=== PATIENT | male | born 1930 | race Caucasian/White ===

== ENCOUNTER → 2017-01-04 | Outpatient (CLI) | payer OTHER | END | disposition home or self-care (01) | LOC: PCVCCLINIC 15:00 | PROVIDERS: ATTEND Internal Medicine Cardiovascular Disease | DX: I48.0 Paroxysmal atrial fibrillation (principal); I25.10 Atherosclerotic heart disease of native coronary artery without angina pectoris; E78.00 Pure hypercholesterolemia, unspecified; I44.2 Atrioventricular block, complete; I65.23 Occlusion and stenosis of bilateral carotid arteries; I49.5 Sick sinus syndrome; I10 Essential (primary) hypertension; E13.9 Other specified diabetes mellitus without complications; Z79.899 Other long term (current) drug therapy | CPT/HCPCS: 80061; 93005; G0463 ==

== ENCOUNTER → 2017-07-13 | Outpatient (CLI) | payer OTHER ==
--- NOTE | 2017-07-16 10:44 | PCVCIMAG ---
APPROVED REPORT Study performed: 07/13/2017 08:52:42 EXAM: Comprehensive 2D, Doppler, and color-flow Echocardiogram Patient Location: Echo lab Room #: 2Status: routine BSA: 2.14 HR: 60 bpm Rhythm: Pacemaker Other Information Study Quality: Technically DifficultGood Risk Factors: Cardiac Risk Factors: DM, Hyperlipidemia Indications Diabetes Dyspnea Pacemaker CAD Hx sick sinus syndrome 2D Dimensions LVEF(%): 64.63 (>50%) IVSd: 8.02 (7-11mm)LVOT Diam: 21.53 (18-24mm) LVDd: 40.32 mm PWd: 7.24 (7-11mm)Ascending Ao: 32.33 (22-36mm) LVDs: 26.27 (25-40mm) Left Atrium: 23.38 (27-40mm) Aortic Root: 29.98 mm LV Single Plane 4CH: 53.61 % LV Single Plane 2CH: 62.65 %Reno's LVEF: 58.13 % Biplane EF: 60.6 % Volumes Left Atrial Volume (Systole) Single Plane 4CH: 69.04 mLSingle Plane 2CH: 64.44 mL Biplane LA Volume: 69.00 mLLA ESV Index: 32.00 mL/m2 Aortic Valve AoV Peak Kimo.: 1.36 m/s AO Peak Gr.: 7.40 mmHgLVOT Max P.33 mmHg LVOT Max V: 0.91 m/s CESILIA Vmax: 2.44 cm2 AI Vmax: 3.97 m/s AI Nye: 2.44 m/s2 AI PHT: 471.50 ms Mitral Valve E/A Ratio: 0.6 MV Decel. Time: 235.48 ms MV E Max Kimo.: 0.49 m/s MV A Kimo.: 0.89 m/s IVRT: 103.81 ms TDI E/Medial E': 9.80 Medial E' Kimo.: 0.05 m/s Pulmonary Valve PV Peak Kimo.: 1.18 m/sPV Peak Gr.: 5.57 mmHg Pulmonary Vein P Vein S: 0.61 m/sP Vein A: 0.34 m/s P Vein D: 0.25 m/sP Vein A Dur.: 100.3 msec P Vein S/D Ratio: 2.44 Tricuspid Valve TR Peak Kimo.: 2.05 m/s TR Peak Gr.: 16.84 mmHg TV Vmax: 0.48 m/sPA Pressure: 24.00 mmHg Left Ventricle The left ventricle is normal size. There is normal LV segmental wall motion. There is normal left ventricular wall thickness. Left ventricular systolic function is normal. The left ventricular ejection fraction is within the normal range. LVEF is 50% range ant apical hypo Grade I - abnormal relaxation pattern. Right Ventricle The right ventricle is normal size. The right ventricular systolic function is normal. Atria The left atrium size is normal. Pacemaker lead is present in the right atrium. Aortic Valve Aortic valve is trileaflet. Aortic valve leaflets are mildly sclerotic. Mild aortic regurgitation. There is no aortic valvular stenosis. Mitral Valve The mitral valve is normal in structure. There is no mitral valve regurgitation noted. No evidence of mitral valve stenosis. Tricuspid Valve The tricuspid valve is normal in structure. Trace tricuspid regurgitation. Pulmonic Valve The pulmonary valve is normal in structure. There is no pulmonic valvular regurgitation. Great Vessels The aortic root is normal in size. The ascending aorta is normal in size. IVC is normal in size and collapses with >50% inspiration Pericardium There is no pericardial effusion. There is no pleural effusion. <Conclusion> The left ventricle is normal size. LVEF is 50% range Grade I - abnormal relaxation pattern. Pacemaker lead is present in the right atrium. Mild aortic regurgitation. There is no mitral valve regurgitation noted. There is no pericardial effusion. LVEF is 50% range ant apical hypo
== END | disposition home or self-care (01) ==
LOC: PCVCIMAG 08:44
PROVIDERS: ATTEND Internal Medicine Cardiovascular Disease
DX: I35.1 Nonrheumatic aortic (valve) insufficiency (principal); I10 Essential (primary) hypertension; I25.10 Atherosclerotic heart disease of native coronary artery without angina pectoris; E11.9 Type 2 diabetes mellitus without complications; I48.0 Paroxysmal atrial fibrillation; Z95.0 Presence of cardiac pacemaker; R06.00 Dyspnea, unspecified
CPT/HCPCS: 93005; 93306

== ENCOUNTER → 2017-10-10 | Outpatient (CLI) | payer OTHER | END | disposition home or self-care (01) | LOC: PCVCCLINIC 10:20 | DX: I25.10 Atherosclerotic heart disease of native coronary artery without angina pectoris (principal); I49.5 Sick sinus syndrome; I48.91 Unspecified atrial fibrillation; E78.00 Pure hypercholesterolemia, unspecified; I10 Essential (primary) hypertension; I77.9 Disorder of arteries and arterioles, unspecified; Z95.0 Presence of cardiac pacemaker; Z79.899 Other long term (current) drug therapy | CPT/HCPCS: 80061; 93280; G0463 ==

== ENCOUNTER → 2018-06-26 | Outpatient (CLI) | payer OTHER | END | disposition home or self-care (01) | LOC: PCVCCLINIC 14:29 | PROVIDERS: ATTEND Internal Medicine Cardiovascular Disease | DX: I10 Essential (primary) hypertension (principal); I48.0 Paroxysmal atrial fibrillation; I42.8 Other cardiomyopathies; I49.5 Sick sinus syndrome; E11.9 Type 2 diabetes mellitus without complications; I44.2 Atrioventricular block, complete; I25.10 Atherosclerotic heart disease of native coronary artery without angina pectoris; E78.5 Hyperlipidemia, unspecified; Z95.0 Presence of cardiac pacemaker | CPT/HCPCS: 93280; G0463 ==

== ENCOUNTER → 2019-03-26 | Outpatient (CLI) | payer OTHER | END | disposition home or self-care (01) | LOC: PCVCCLINIC 13:00 | PROVIDERS: ATTEND Internal Medicine Cardiovascular Disease | DX: I42.9 Cardiomyopathy, unspecified (principal); I48.0 Paroxysmal atrial fibrillation; I10 Essential (primary) hypertension; E78.00 Pure hypercholesterolemia, unspecified; I49.5 Sick sinus syndrome; I44.2 Atrioventricular block, complete; E11.9 Type 2 diabetes mellitus without complications; Z95.0 Presence of cardiac pacemaker | CPT/HCPCS: 36415; 80061; 93280; G0463 ==

== ENCOUNTER → 2019-07-02 | Outpatient (CLI) | payer OTHER ==
--- NOTE | 2019-07-02 14:36 | PCVCIMAG ---
APPROVED REPORT Study performed: 07/02/2019 13:35:42 EXAM: Comprehensive 2D, Doppler, and color-flow Echocardiogram Patient Location: Echo lab Status: routine BSA: 1.99 HR: 60 bpm Rhythm: NSR Other Information Study Quality: Technically Difficult Risk Factors: Cardiac Risk Factors: HTN Indications Pacemaker Cardiomyopathy PAF 2D Dimensions IVSd: 12.89 (7-11mm)LVOT Diam: 23.72 (18-24mm) LVDd: 36.80 mm PWd: 11.61 (7-11mm)Ascending Ao: 32.91 (22-36mm) LVDs: 30.30 (25-40mm) Left Atrium: 46.98 (27-40mm) Aortic Root: 30.67 mm LV Single Plane 4CH: 51.63 % LV Single Plane 2CH: 53.23 % Biplane EF: 52.6 % Volumes Left Atrial Volume (Systole) Single Plane 4CH: 60.62 mLSingle Plane 2CH: 46.54 mL LA ESV Index: 27.00 mL/m2 Aortic Valve AoV Peak Kimo.: 1.60 m/s AO Peak Gr.: 10.24 mmHgLVOT Max P.37 mmHg LVOT Max V: 0.92 m/s CESILIA Vmax: 2.53 cm2 AI Vmax: 4.16 m/s AI Dubois: 1.83 m/s2 AI PHT: 660.42 ms Mitral Valve E/A Ratio: 0.5 MV Decel. Time: 221.78 ms MV E Max Kimo.: 0.48 m/s MV A Kimo.: 0.99 m/s Pulmonary Valve PV Peak Gr.: 3.70 mmHg Tricuspid Valve TR Peak Kimo.: 2.66 m/s TR Peak Gr.: 28.38 mmHg Left Ventricle The left ventricle is normal size. Mild apical hypokinesis. There is normal left ventricular wall thickness. Left ventricular systolic function is borderline. LVEF is 50%. Grade I - abnormal relaxation pattern. Right Ventricle The right ventricle is normal size. The right ventricular systolic function is normal. Pacemaker lead is present in the right ventricle. Atria The left atrium size is normal. Pacemaker lead is present in the right atrium. Aortic Valve The aortic valve is normal in structure. Trace aortic regurgitation. There is no aortic valvular stenosis. Mitral Valve The mitral valve is normal in structure. Mild mitral regurgitation. No evidence of mitral valve stenosis. Tricuspid Valve The tricuspid valve is normal in structure. Mild tricuspid regurgitation. Pulmonary artery pressure is 35mmHg. Pulmonic Valve The pulmonary valve is normal in structure. There is no pulmonic valvular regurgitation. Great Vessels The aortic root is normal in size. IVC is normal in size and collapses >50% with inspiration. Pericardium There is no pericardial effusion. <Conclusion> Normal echocardiogram. The left ventricle is normal size. Left ventricular systolic function is borderline. LVEF is 50%. Grade I - abnormal relaxation pattern. The right ventricular systolic function is normal. Pacemaker lead is present in the right ventricle. Pacemaker lead is present in the right atrium. Trace aortic regurgitation. Mild mitral regurgitation. Mild tricuspid regurgitation. Pulmonary artery pressure is 35mmHg. The aortic root is normal in size. There is no pericardial effusion.
== END | disposition home or self-care (01) ==
LOC: PCVCIMAG 13:25
PROVIDERS: ATTEND Internal Medicine Cardiovascular Disease
DX: I08.1 Rheumatic disorders of both mitral and tricuspid valves (principal); I48.0 Paroxysmal atrial fibrillation; I42.8 Other cardiomyopathies; I49.5 Sick sinus syndrome; I44.2 Atrioventricular block, complete; I10 Essential (primary) hypertension; E78.00 Pure hypercholesterolemia, unspecified; G47.33 Obstructive sleep apnea (adult) (pediatric); Z95.0 Presence of cardiac pacemaker
CPT/HCPCS: 93306